=== PATIENT | female | born 1990 | race Caucasian/White ===

== ENCOUNTER → 2017-10-23 13:19 | Outpatient (CLI) | payer MEDICAID, SELFPAY | PROVIDERS: Family Provider Nurse Practitioner; PCP Nurse Practitioner; Visit Provider Nurse Practitioner | DX: R20.0 Anesthesia of skin (principal); R20.2 Paresthesia of skin; G25.9 Extrapyramidal and movement disorder, unspecified | CPT/HCPCS: 72110 ==

== ENCOUNTER → 2017-10-31 11:59 | Outpatient (CLI) | payer MEDICAID, SELFPAY ==
[2017-10-31 13:04] LABS: Hemoglobin A1c 4.7 % (4.2-6.3)
[2017-10-31 13:27] LABS: CPK Total, Creatine Kinase 72 U/L (26-192); Thyroid Stim Hormone (TSH) 1.07 uIU/mL (0.358-3.74); Uric Acid 3.6 mg/dL (2.6-6.0); Vitamin B12 255 pg/mL (211-911)
[2017-11-05 13:37] LABS: ANTINUCLEAR ANTIBODIES DIRECT Negative (Negative)
== END ==
PROVIDERS: Family Provider Nurse Practitioner; PCP Nurse Practitioner; Visit Provider Psychiatry & Neurology Neurology
DX: R20.0 Anesthesia of skin (principal); G62.9 Polyneuropathy, unspecified
CPT/HCPCS: 36415; 82550; 82607; 83036; 84443; 84550; 86038

== ENCOUNTER → 2017-11-17 09:29 | Outpatient (CLI) | payer MEDICAID, SELFPAY ==
--- NOTE | 2017-11-17 09:38 | MRI_ITS ---
STUDY: MRI LUMBAR SPINE WITHOUT CONTRAST REASON FOR EXAM: Female, 27 years old. radiculopathy, rt foot weakness/numb, NKI. TECHNIQUE: Standardized fat and water weighted pulse sequences were obtained in the sagittal and axial planes. COMPARISON: None FINDINGS: T12-L1: Normal endplates. Normal disc height, hydration and morphology. Normal bilateral facet joints. Normal central canal and bilateral lateral recesses. Normal bilateral intervertebral neural foramina. Normal lumbar lordosis. There is no substantial scoliosis. Normal conus medullaris that terminates at the L1-2: Normal endplates. Normal disc height, hydration and morphology. Normal bilateral facet joints. Normal central canal and bilateral lateral recesses. Normal bilateral intervertebral neural foramina. L2-3: Normal endplates. Normal disc height, hydration and morphology. Normal bilateral facet joints. Normal central canal and bilateral lateral recesses. Normal bilateral intervertebral neural foramina. L3-4: Normal endplates. Normal disc height, hydration and morphology. Normal bilateral facet joints. Normal central canal and bilateral lateral recesses. Normal bilateral intervertebral neural foramina. L4-5: There is minimal disc space narrowing and endplate spondylosis. There is a mild disc bulge with posterior annular fissure and mild facet arthropathy without significant central canal or foraminal stenosis. L5-S1: There is minimal disc space narrowing and endplate spondylosis. There is a mild disc bulge with posterior annular fissure and mild facet arthropathy without significant central canal or foraminal stenosis. Normal visualized sacral ala. Normal visualized paraspinous soft tissue structures. MRI/Spine Lumbar (Routine) IMPRESSION: Annular fissures at L4/L5 and L5/S1 Electronically Signed: Chantel Henriquez MD at 10:46 EDT Tel , Service support ,
== END ==
PROVIDERS: Family Provider Family Medicine; PCP Family Medicine; Visit Provider Psychiatry & Neurology Neurology
DX: R29.898 Other symptoms and signs involving the musculoskeletal system (principal); R20.0 Anesthesia of skin; M54.16 Radiculopathy, lumbar region
CPT/HCPCS: 72148

== ENCOUNTER → 2019-04-21 | Outpatient (CLI) | payer MEDICAID, SELFPAY ==
[2019-04-21 20:24] LABS: Chlamydia Trachomatis by PCR Negative (Negative); Neisserai gonorrhoeae by PCR Negative (Negative); Probe Check PASS; Sample Adequacy Control PASS; Specimen Processing Control PASS
== END | disposition home or self-care (01) ==
LOC: LABSPEC 16:26
PROVIDERS: PCP Family Medicine; Visit Provider Obstetrics & Gynecology
DX: Z11.3 Encounter for screening for infections with a predominantly sexual mode of transmission (principal)
CPT/HCPCS: 87491; 87591

== ENCOUNTER → 2019-05-05 10:42 | Outpatient (CLI) | payer MEDICAID, SELFPAY ==
[2019-05-05 13:51] LABS: Absolute Lymphocyte Count 1.63 X10^3/uL (0.83-4.51); Absolute Neutrophil Count 5.4 X10^3/uL (2.0-7.7); Basophil# 0.03 X10^3/uL; Basophil% 0.4 % (0-1); Eosinophil# 0.03 X10^3/uL; Eosinophils% 0.4 % (0-5); Hematocrit 41.5 % (37-47); Hemoglobin 13.7 g/dL (12.0-15.0); Lymphocyte # 1.63 X10^3/ul (4.0); Lymphocyte % 21.3 % (19-41); Mean Corpuscular Hgb 29.9 pg (27.0-32.0); Mean Corpuscular Volume 90.6 fL (81-99); Mean Platelet Vol. 9.5 fl (6.2-12.0); Monocyte# 0.59 X10^3/uL; Monocyte% 7.7 % (0-10); NRBC Flagged by Analyzer 0 % (0-5); Neutrophil # 5.36 X10^3/uL (2.7-7.7); Neutrophil % 69.8 % (47-70); Platelet Count 218 K/mm3 (150-450); RBC Distribution Width CV 12.8 % (11.6-14.6); RBC Distribution Width SD 41.9 fl (35.1-43.9); Red Blood Count 4.58 M/mm3 (4.2-5.4); White Blood Count 7.7 K/mm3 (4.4-11.0)
[2019-05-05 13:54] LABS: Color, Urine Yellow (Yellow); Glucose, Dipstick Normal (Normal); Ketone-Dipstick Negative (Negative); Leukocyte Esterase-Dipstick Negative /ul (Negative); Nitrite-Dipstick Negative (Negative); Occult Blood-Urine Negative /ul (Negative); Protein-Dipstick Negative (Negative); Urine Bilirubin Dipstick Negative (Negative); Urine Clarity Sl. Cloudy (Clear); Urine Urobilinogen Normal (Normal)
[2019-05-05 14:06] LABS: Amphetamine Urine VISTA NEGATIVE (<1000 ng/mL); Barbiturate Urine VISTA NEGATIVE (< 200 ng/mL); Benzodiazepine Urine VISTA NEGATIVE (< 200 ng/mL); Cocaine Urine VISTA NEGATIVE (< 300 ng/mL); Ecstacy Urine VISTA NEGATIVE (< 500 ng/mL); Methadone Urine VISTA NEGATIVE (< 300 ng/mL); PCP Urine VISTA NEGATIVE (< 25 ng/mL); THC Urine VISTA NEGATIVE (< 50 ng/mL); Vista UDS pH Range 7
[2019-05-05 14:37] LABS: HIV - WCH Non-Reactive (Nonreactive); Hepatitis B Surface Antigen Non-Reactive (Nonreactive); Hepatitis C Antibody Non-Reactive (Nonreactive); Rubella IgG 50.8 IU/mL
[2019-05-06 00:26] LABS: Prenatal RPR NONREACTIVE (NONREACTIVE)
== END ==
PROVIDERS: PCP Family Medicine; Visit Provider Obstetrics & Gynecology
DX: Z34.81 Encounter for supervision of other normal pregnancy, first trimester (principal)
CPT/HCPCS: 36415; 80307; 81002; 84443; 85025; 86703; 86762; 86803; 87340

== ENCOUNTER → 2019-06-17 17:27 | Outpatient (CLI) | payer MEDICAID, SELFPAY | PROVIDERS: Visit Provider Obstetrics & Gynecology | DX: Z34.82 Encounter for supervision of other normal pregnancy, second trimester (principal); R30.0 Dysuria | CPT/HCPCS: 87086; 87088 ==

== ENCOUNTER → 2019-09-15 10:01 | Outpatient (CLI) | payer MEDICAID, SELFPAY ==
[2019-09-15 11:18] LABS: Glucose Challenge Gest 1H 50g 97 mg/dL (70-140)
[2019-09-15 11:29] LABS: Hematocrit 34.6 % (37-47); Hemoglobin 11.4 g/dL (12.0-15.0); Mean Corp Hgb Conc 32.9 g/dL (32-36); Mean Platelet Vol. 9.7 fl (6.2-12.0); Platelet Count 206 K/mm3 (150-450); RBC Distribution Width CV 13.1 % (11.6-14.6); RBC Distribution Width SD 44.7 fl (35.1-43.9); Red Blood Count 3.68 M/mm3 (4.2-5.4); White Blood Count 9.2 K/mm3 (4.4-11.0)
== END ==
PROVIDERS: Visit Provider Obstetrics & Gynecology
DX: Z34.82 Encounter for supervision of other normal pregnancy, second trimester (principal)
CPT/HCPCS: 36415; 82950; 85027; 86850

== ENCOUNTER → 2019-11-15 11:51 | Outpatient (CLI) | payer MEDICAID, SELFPAY | PROVIDERS: Visit Provider Obstetrics & Gynecology | DX: Z36.85 Encounter for antenatal screening for Streptococcus B (principal) | CPT/HCPCS: 87081 ==

== ENCOUNTER 2019-11-28 19:05 | Inpatient (IN) | payer MEDICAID, SELFPAY ==
[2019-11-28] VITALS (35 sets, daily range): BP systolic 99–144; BP diastolic 51–73; PULSE 92–131; TEMP 37–37.7; O2SAT 97–100; BMI 38.4
[2019-11-28 19:32] LABS: Absolute Lymphocyte Count 1.35 X10^3/uL (0.83-4.51); Basophil# 0.02 X10^3/uL; Basophil% 0.2 % (0-1); Eosinophil# 0.04 X10^3/uL; Eosinophils% 0.5 % (0-5); Hematocrit 36.6 % (37-47); Hemoglobin 12.1 g/dL (12.0-15.0); Lymphocyte # 1.35 X10^3/ul (4.0); Lymphocyte % 15.9 % (19-41); Mean Corp Hgb Conc 33.1 g/dL (32-36); Mean Corpuscular Volume 90.8 fL (81-99); Mean Platelet Vol. 10.2 fl (6.2-12.0); Monocyte# 1.03 X10^3/uL; Monocyte% 12.1 % (0-10); NRBC Flagged by Analyzer 0 % (0-5); Neutrophil % 70.6 % (47-70); Platelet Count 197 K/mm3 (150-450); RBC Distribution Width CV 13.5 % (11.6-14.6); RBC Distribution Width SD 44.7 fl (35.1-43.9); Red Blood Count 4.03 M/mm3 (4.2-5.4); White Blood Count 8.5 K/mm3 (4.4-11.0)
--- NOTE | 2019-11-28 20:44 | PCM.HPOB.BLA ---
History and Physical Date of Admission: 11/28/19 Chief complaint: leakage of fluid history of present illness: 29 year old at 38 weeks and two days with CATARINA of 12/10/19 by six week ultrasound arrives with leakage of fluid, clear. Denies chest pain, shortness of breath, nausea vomiting, headache, visual changes, right upper quadrant pain. States good movement. Obstetric history: G1: 39 week male G2: current Past medical history: RH negative Past surgical history : none Medications: vitamin Allergies: no known drug allergies Social: smoker . Denies alcohol or drug use Review systems: Besides the above pertinent positives a full review systems was performed and found to be negative physical exam: Vital Signs Temp Pulse BP Pulse Ox 11/28/19 20:55 131 H 111/59 L 11/28/19 20:01 92 124/56 H 97 11/28/19 19:18 99.8 F H 99 11/28/19 19:17 98 98 11/28/19 19:02 105 H 128/69 H General: normal appearing no acute distress HEENT: NCAT, no cervical lymph adenopathy Cardiac/Respiratory: no acute distress, no use of accessory muscles, non labored breathing Abdomen: soft nontender. Gravid . Pelvic: Cervical exam 4 centimeters per nursing evaluation . Grossly ruptured Extremities: no peripheral edema normal peripheral pulses Psych: normal affect normal demeanor non pressured speech FHT: 120/mod patricia/+accel/-decel [place]: q4 min Mom's Labs & Results 11/28/19 11/28/19 19:15 19:15 WBC 8.5 RBC 4.03 L Hgb 12.1 Hct 36.6 L MCV 90.8 MCH 30.0 MCHC 33.1 RDW Std Deviation 44.7 H RDW Coeff of Patricia 13.5 Plt Count 197 MPV 10.2 Immature Gran % (Auto) 0.700 Neut % (Auto) 70.6 H Lymph % (Auto) 15.9 L [place] % (Auto) 12.1 H Eos % (Auto) 0.5 Baso % (Auto) 0.2 Absolute Neuts (auto) 6.0 Absolute Lymphs (auto) 1.35 Nucleated RBC % 0 Blood Type A NEGATIVE Antibody Screen NEGATIVE Labs Blood Type: A RH: NEGATIVE RPR/VDRL/Syphilis Nonreactive Rubella status Immune HbSAg Negative Date Done: 05/05/19 Chlamydia Negative Gonorrhea Negative HIV/AIDS Non-Reactive Group B Strep: Negative Assessment in plan: 29 year old at 38/2 with spontaneous rupture of membranes . -Admin to labor and delivery -CEFM -GBS negative -Rh negative for rhogam -Routine orders -Anesthesia to see
[2019-11-28] MEDS: 0.9% Saline Lock 10 ML Syringe IV (21:19)
[2019-11-28] MEDS: Lactated Ringers 500 ML 999 ML IV (21:20)
[2019-11-28] MEDS: Lactated Ringers 1,000 ML 200 ML IV (21:49)
[2019-11-28] MEDS: fentaNYL-bupivacaine (epidural) 100 ML BAG EPIDURAL (22:09)
[2019-11-28] MEDS: Oxytocin 30 units/NS 500 ml 30 UNITS/500 ML IV.SOLN 334 UNITS IV (23:00)
--- NOTE | 2019-11-28 23:15 | PCM.OPRPT ---
Vaginal Delivery Maternal Presentation: Spontaneous Rupture of Membranes Amniotic Membrane Rupture Type: Spontaneous Amniotic Fluid Description: Clear Date of Procedure: 11/28/19 Pre-Operative Diagnosis: Spontaneous rupture membranes, term Post-Operative Diagnosis: Spontaneous rupture of membranes, term Surgery/ Procedure Performed: Spontaneous Vaginal Delivery Type of Anesthesia: Epidural Description of Procedure: Called by RN feeling pushy complete dilation. Normal spontaneous vaginal delivery of a viable male infant, vertex MICHELLE. Head and shoulders delivered with ease. Cord cut and clamped. Baby handed off to mom. Placenta delivered via cord traction and fundal massage. Clitoral laceration noted and repaired in typical fashion. EBL 400 cc Apgars 8/10 bladder drained with red rubber catheter for 50 cc Medications given after delivery: IV Pitocin
--- NOTE | 2019-11-28 23:17 | DCINST_ITS ---
Discharge Diet: No Restrictions Discharge Activity: Return to Normal Activity May resume sexual activity in: 2 weeks Weight Bearing Status: Weight bearing as tolerated Call your doctor if you observe: Fever of 101 or Higher, Shortness of breath, Chest pain Additional Instructions: If you experience any of the following, contact your healthcare provider. * Bleeding that soaks a pad every hour for 2 hours * Fever 100.4 or higher * Unrelieved incision or abdominal pain * Swelling, redness, discharge or bleeding from your incision or episiotomy site * Your incision begins to separate * Problems urinating (including inability to urinate or burning while urinating). * Visual changes * Severe headache * Flu-like symptoms * Pain or redness in one of both of your breasts * Pain, warmth, tenderness or swelling in your legs, especially the calf area * Frequent nausea and vomiting * Symptoms of depression or anxiety If you experience any of the following, call 911 or go to the nearest Emergency Room. * Chest pain * Problems breathing * Seizure activity * Partial or complete paralysis of a body part, slurred speech, weakness or drooping of the face, or a sudden inability to walk or hold your balance Allergies/Adverse Reactions: Allergies No Known Allergies Allergy (Verified 11/28/19 19:03) Please Follow Up With: Humberto Wooten MD When: 6 weeks Test Results: Test results from this visit will be discussed in further detail at your follow- up appointment, if applicable.
--- NOTE | 2019-11-28 23:17 | PCM.DCVAG ---
Discharge Diet: No Restrictions Discharge Activity: Return to Normal Activity May resume sexual activity in: 2 weeks Weight Bearing Status: Weight bearing as tolerated Call your doctor if you observe: Fever of 101 or Higher, Shortness of breath, Chest pain Additional Instructions: If you experience any of the following, contact your healthcare provider. Bleeding that soaks a pad every hour for 2 hours Fever 100.4 or higher Unrelieved incision or abdominal pain Swelling, redness, discharge or bleeding from your incision or episiotomy site Your incision begins to separate Problems urinating (including inability to urinate or burning while urinating). Visual changes Severe headache Flu-like symptoms Pain or redness in one of both of your breasts Pain, warmth, tenderness or swelling in your legs, especially the calf area Frequent nausea and vomiting Symptoms of depression or anxiety If you experience any of the following, call 911 or go to the nearest Emergency Room. Chest pain Problems breathing Seizure activity Partial or complete paralysis of a body part, slurred speech, weakness or drooping of the face, or a sudden inability to walk or hold your balance Allergies/Adverse Reactions: Allergies No Known Allergies Allergy (Verified 11/28/19 19:03) Please Follow Up With: Humberto Wooten MD When: 6 weeks Test Results: Test results from this visit will be discussed in further detail at your follow-up appointment, if applicable.
[2019-11-29] VITALS (10 sets, daily range): BP systolic 108–127; BP diastolic 52–72; PULSE 76–109; RESP 16; TEMP 36.5–37.2; O2SAT 95–96
[2019-11-29] MEDS: 0.9% Saline Lock 10 ML Syringe IV (01:37)
--- NOTE | 2019-11-29 08:22 | PCM.PN.OB ---
Subjective: Patient doing well overnight. Pain during attempts for breast-feeding. Otherwise pain well controlled. Denies chest pain, shortness of breath, nausea vomiting. Minimal lochia - Physical Exam Vitals/I&O's: Vital Signs Temp Pulse Resp BP Pulse Ox 98.2 F 109 H 16 112/54 L 100 11/29/19 03:33 11/29/19 03:33 11/29/19 03:11/29/19 03:11/28/19 23:12 Oxygen Delivery Method Room Air Weight: 223 lb 12.8 oz Body Mass Index (BMI) 38.4 Intake and Output for Last 24 Hours 11/27/19 11/28/19 11/29/19 23:59 23:59 23:59 Intake Total 873.18 / 873.18 333 / 333 Output Total 100 / 100 Balance 873.18 / 873.18 233 / 233 General: Alert, Oriented x3, Cooperative, No apparent distress HEENT: Atraumatic, Normocephalic Oral: Moist Mucosa Neck: Supple Abdomen: Soft, Non Tender, Gravid - Fundus firm and below umbilicus Psych/Mental Status: Normal Affect, Appropriate, Alert and oriented to time, place, person, mood and affect Laboratory Results 11/28/19 19:15: WBC 8.5, RBC 4.03 L, Hgb 12.1, Hct 36.6 L, MCV 90.8, MCH 30.0, MCHC 33.1, RDW Std Deviation 44.7 H, RDW Coeff of Patricia 13.5, Plt Count 197, MPV 10.2, Immature Gran % (Auto) 0.700, Neut % (Auto) 70.6 H, Lymph % (Auto) 15.9 L, [place] % (Auto) 12.1 H, Eos % (Auto) 0.5, Baso % (Auto) 0.2, Absolute Neuts (auto) 6.0, Absolute Lymphs (auto) 1.35, Nucleated RBC % 0 11/28/19 19:15: Blood Type A NEGATIVE, Antibody Screen NEGATIVE 11/29/19 00:59: Screen NEGATIVE, Baby's Blood Type A POSITIVE, Baby's BRAEDEN NEGATIVE Current Medications Acetaminophen (Tylenol) 1,000 mg PO Q8H PRN PRN PRN Reason: Pain Score 1-3/10 Bisacodyl (Dulcolax) 10 mg RECTAL UD PRN PRN Reason: If no BM Dibucaine (Dibucaine) 1 applic TOPICAL TID PRN PRN; Protocol PRN Reason: Discomfort Hydrocortisone (Hytone) 1 applic TOPICAL TID PRN PRN; Protocol PRN Reason: Discomfort Ibuprofen (Motrin) 600 mg PO Q6H PRN PRN PRN Reason: Pain Score 1-3/10 Ondansetron HCl (Zofran) 4 mg IV Q4H PRN PRN PRN Reason: Nausea Senna/Docusate Sodium (Senokot-S, Sonal-Colace) 1 - 2 tablet PO DAILY PRN PRN PRN Reason: Constipation Simethicone (Mylicon) 80 mg PO PCHS PRN PRN Reason: Indigestion/Stomach pain Sodium Chloride () 5 - 15 ml IV UD PRN PRN Reason: SALINE FLUSH Last Admin: 11/29/19 01:37 Dose: 10 ml Documented by: Medical Necessity - Tobacco Use Smoking Status: Former smoker Assessment/Plan day 1 status post spontaneous vaginal delivery. Patient's pain well controlled but is having pain during breast-feeding to see today. Desires Ortho [facility] for control. Likely DC home tomorrow
--- NOTE | 2019-11-29 09:28 | NURSING ---
Pt has approximated clitoral laceration.
--- NOTE | 2019-11-29 09:32 | NURSING ---
Bruise noted on upper midline areola.
[2019-11-29] MEDS: Ibuprofen 600 MG Tablet PO ×2 (09:52→17:00)
--- NOTE | 2019-11-29 12:39 | NURSING ---
bruise noted on top of left aerola, no change since Am assessment and clitoral laceration approximated.
--- NOTE | 2019-11-29 15:55 | NURSING ---
Clitoral laceration approximated; bruise noted on left areola top, midline. No change in assessment.
[2019-11-29] MEDS: Acetaminophen 500 MG Tablet 1000 MG PO (23:20)
[2019-11-30 01:00] VITALS: BP 119/78; PULSE 81; RESP 16; TEMP 36.5
[2019-11-30] MEDS: Ibuprofen 600 MG Tablet PO (05:26)
--- NOTE | 2019-11-30 08:39 | PCM.PN.OB ---
Subjective: Patient without complaints. Breast-feeding going well. Minimal vaginal bleeding. Ready to go home. - Physical Exam Vitals/I&O's: Vital Signs Temp Pulse Resp BP Pulse Ox 97.7 F L 81 16 119/78 96 11/30/19 01:00 11/30/19 01:00 11/30/19 01:00 11/30/19 01:00 11/29/19 15:50 Oxygen Delivery Method Room Air Weight: 223 lb 12.8 oz Body Mass Index (BMI) 38.4 Intake and Output for Last 24 Hours 11/28/19 11/29/19 11/30/19 23:59 23:59 23:59 Intake Total 873.18 / 873.18 333 / 333 Output Total 600 / 600 Balance 873.18 / 873.18 -267 / -267 Current Medications Acetaminophen (Tylenol) 1,000 mg PO Q8H PRN PRN PRN Reason: Pain Score 1-3/10 Last Admin: 11/29/19 23:20 Dose: 1,000 mg Documented by: Bisacodyl (Dulcolax) 10 mg RECTAL UD PRN PRN Reason: If no BM Dibucaine (Dibucaine) 1 applic TOPICAL TID PRN PRN; Protocol PRN Reason: Discomfort Hydrocortisone (Hytone) 1 applic TOPICAL TID PRN PRN; Protocol PRN Reason: Discomfort Ibuprofen (Motrin) 600 mg PO Q6H PRN PRN PRN Reason: Pain Score 1-3/10 Last Admin: 11/30/19 05:26 Dose: 600 mg Documented by: Ondansetron HCl (Zofran) 4 mg IV Q4H PRN PRN PRN Reason: Nausea Senna/Docusate Sodium (Senokot-S, Sonal-Colace) 1 - 2 tablet PO DAILY PRN PRN PRN Reason: Constipation Simethicone (Mylicon) 80 mg PO PCHS PRN PRN Reason: Indigestion/Stomach pain Sodium Chloride () 5 - 15 ml IV UD PRN PRN Reason: SALINE FLUSH Last Admin: 11/29/19 01:37 Dose: 10 ml Documented by: Medical Necessity - Tobacco Use Smoking Status: Former smoker Assessment/Plan Doing well day #2 status post routine spontaneous vaginal delivery. Will discharge to home with routine instructions.
[2019-11-30 10:00] VITALS: BP 123/77; PULSE 79; RESP 18; TEMP 36.8
== END 2019-11-30 10:30 | disposition home or self-care (01) | DRG 560 ==
LOC: WPOUT 19:08 → WP 19:08
PROVIDERS: Admitting Provider Obstetrics & Gynecology; Visit Provider Obstetrics & Gynecology
DX: O70.0 First degree perineal laceration during delivery (principal); Z3A.38 38 weeks gestation of pregnancy; Z87.891 Personal history of nicotine dependence; Z37.0 Single live birth
CPT/HCPCS: 59025; 59050; 85025; 85461; 86850; 86900; 86901; 90384; 99218; J7120; A4216; G0378; J2790

== ENCOUNTER → 2020-07-13 11:34 | Outpatient (CLI) | payer MEDICAID, SELFPAY ==
[2019-11-28 18:54] VITALS: BMI 38.4
[2020-07-17 16:05] LABS: HPV Reflexed? NOT INDICATED
== END ==
PROVIDERS: Visit Provider Obstetrics & Gynecology
DX: Z12.4 Encounter for screening for malignant neoplasm of cervix (principal)
CPT/HCPCS: 88175; G0145